=== PATIENT | female | born 1955 | race Caucasian/White ===

== ENCOUNTER 2017-05-25 07:25 | Outpatient (CLI) | payer OTHER | END 2017-05-25 15:12 | disposition home or self-care (01) | LOC: MAMO-SONO 07:25 | DX: Z12.31 Encounter for screening mammogram for malignant neoplasm of breast (principal); N60.11 Diffuse cystic mastopathy of right breast; N60.12 Diffuse cystic mastopathy of left breast ==

== ENCOUNTER 2018-04-06 11:23 | Outpatient (CLI) | payer OTHER | END 2018-04-06 11:37 | disposition home or self-care (01) | LOC: MRI 11:23 | DX: M54.5 Low back pain (principal) | CPT/HCPCS: 72148 ==

== ENCOUNTER 2018-04-07 13:40 | Outpatient (CLI) | payer OTHER | END 2018-04-07 13:42 | disposition home or self-care (01) | LOC: SONOGRAMA 13:40 | DX: R10.2 Pelvic and perineal pain (principal) ==

== ENCOUNTER 2018-06-20 14:28 | Outpatient (CLI) | payer OTHER | END 2018-06-20 15:00 | disposition HB | LOC: LAB 14:28 | DX: R19.00 Intra-abdominal and pelvic swelling, mass and lump, unspecified site (principal); Z51.81 Encounter for therapeutic drug level monitoring ==

== ENCOUNTER 2018-07-28 09:21 | Outpatient (CLI) | payer OTHER | END 2018-07-28 15:52 | disposition home or self-care (01) | LOC: EDBD 09:21 → MAMO-SONO 09:21 | DX: Z12.31 Encounter for screening mammogram for malignant neoplasm of breast (principal) ==

== ENCOUNTER 2018-08-15 11:16 | Outpatient (CLI) | payer OTHER | END 2018-08-15 11:24 | disposition home or self-care (01) | LOC: RAD 11:16 | DX: M54.5 Low back pain (principal); M25.561 Pain in right knee ==

== ENCOUNTER 2018-10-20 11:34 | Outpatient (CLI) | payer OTHER | END 2018-10-20 11:35 | disposition home or self-care (01) | LOC: SONOGRAMA 11:34 | DX: D25.1 Intramural leiomyoma of uterus (principal); R19.09 Other intra-abdominal and pelvic swelling, mass and lump ==

== ENCOUNTER → 2020-05-23 | Outpatient (CLI) | payer OTHER | END | disposition home or self-care (01) | LOC: MAMO-SONO 09:45 | PROVIDERS: ATTEND Obstetrics & Gynecology Gynecology | DX: Z12.31 Encounter for screening mammogram for malignant neoplasm of breast (principal); N64.59 Other signs and symptoms in breast; N60.11 Diffuse cystic mastopathy of right breast; N60.12 Diffuse cystic mastopathy of left breast ==

== ENCOUNTER 2022-06-25 09:05 | Outpatient (CLI) | payer OTHER | END 2022-06-25 09:30 | disposition home or self-care (01) | LOC: MAMO-SONO 09:05 | PROVIDERS: ATTEND Obstetrics & Gynecology Gynecology | DX: N60.11 Diffuse cystic mastopathy of right breast (principal); N60.12 Diffuse cystic mastopathy of left breast; G47.30 Sleep apnea, unspecified ==

== ENCOUNTER → 2024-01-02 | Outpatient (CLI) | payer OTHER | END | disposition home or self-care (01) | LOC: MAMO-SONO 08:57 | PROVIDERS: ATTEND Obstetrics & Gynecology Gynecology | DX: N60.11 Diffuse cystic mastopathy of right breast (principal); N60.12 Diffuse cystic mastopathy of left breast; Z12.31 Encounter for screening mammogram for malignant neoplasm of breast ==